=== PATIENT | male | born 1950 | race Caucasian/White ===

== ENCOUNTER 2025-08-28 13:12 | Outpatient (AMB) | payer MEDICARE, SELFPAY ==
--- NOTE | 2025-08-28 13:15 | A.OFFPC_ITS ---
Vital Signs 08/28/25 13:21 Height 5 ft 6.34 in Weight 205 lb BMI 32.7 BP 142/74 H Blood Pressure Location Rt brachial Position Sitting Respiration 16 Pulse 78 Pulse Source Pulse Oximeter Temp 97.6 F Temp Source Temporal Artery Scan Pulse Oximetry (%) 95 Oxygen Delivery Method Room Air Intake Visit Reasons: Annual Physical, New Patient - see comments Informatics Manager Required: No Accompanied by: Self / Same As Patient Allergies No Known Allergies Allergy (Verified 08/28/25 13:15) Tobacco use date assessed: 08/28/25 Fall risk assessment: No Falls in past year Last assessed Fall Risk: 08/28/25 Dental Screening Dental Screen Date: 08/28/25 Did you have a dental visit in the last 12 months?: Yes Did you have a dental problem in the last 6 months where you did not have access to dental care?: No Was dental information given to patient?: Patient has dentist HPI HPI Comments History of Present Illness Details History of Present Illness - The patient is a 75 year old individua l presenting for an annual physical examination and to establish care with a new primary care provider, as the patient's previous physician moved. - Hyperlipidemia: The patient was previo usly on a statin medication but discontinued it after developing a rash in the armpits, which resolved after stopping the drug. - The patient is now attempting to manag e cholesterol through diet and plans to start exercising. - Colon polyps: The last colonoscopy was in 2021, which showed three polyps, and the next screening is due in 2031. - Vitamin D deficiency: The patient was taking vitamin D, but the prescription stopped. - Supplements: The patient takes one cap naheed of Serovital daily for energy and has been doing so for decades. - Vaccinations: The patient declines the influenza vaccine. 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 - Diet: The patient reports previously l etting diet go in the summer with foods like ice cream and tends to eat late at night. - The patient states intent to improve d ietary habits and reduce carbohydrate intake. - Exercise: The patient acknowledges a l ack of regular exercise but plans to start, suggesting activities such as dancing for an hour a day. - Substance Use: The patient denies alco hol use except when eating. - Housing: The patient recently moved to [place]. Results - Procedures: A colonoscopy in 2021 foun d three polyps. [facility] Family History (Updated 08/28/25 @ 13:16 by AR Bonilla) Father No problems noted. Mother No problems noted. Social History (Updated 08/28/25 @ 13:27 by AR Bonilla) Housing: Apartment Alcohol intake: current Alcohol intake frequency: holidays/special occasions only Patient Tobacco Use Status: Never used Tobacco Substance Use Type: Marijuana service: No Current occupational status: employed Cognitive needs: No Hearing needs: No Vision needs: Yes (rx glasses) Questionnaire PHQ-9 Over the last 2 weeks, how often have you been bothered by any of the following problems? 1. Little interest or pleasure in doing things: not at all 2. Feeling down, depressed, or hopeless: not at all 3. Trouble falling or staying asleep, or sleeping too much: not at all 4. Feeling tired or having little energy: not at all 5. Poor appetite or overeating: not at all 6. Feeling bad about yourself - or that you are a failure or have let yourself or your family down: not at all 7. Trouble concentrating on things, such as reading the newspaper or watching television: not at all 8. Moving or speaking so slowly that other people could have noticed. Or the opposite - being so fidgety or restless that you have been moving around a lot more than usual: not at all 9. Thoughts that you would be better off or of hurting yourself in some way: not at all Total score: 0 Source: Developed by Drs. Tera Nuñez, Heena Berry, Vic Pardo and colleagues, with an educational bart from [employer]. Thrive Questionnaire Date Thrive assessed: 08/28/25 I am a: Patient What is your living situation today?: I have a steady place to live Within the past 12 months, did the food you bought not last and you didn't have the money to get more?: Never true Within the past 12 months, did you worry whether your food would run out before you got money to buy more?: Never true Do you have trouble paying for medicines?: No Do you have trouble getting transportation to medical appointments?: No Do you have trouble paying your heating and electricity bill?: No Do you have trouble taking care of your child, family member or friend?: No Do you have trouble with day-to-day activities such as bathing, preparing meals, shopping, managing finances, etc.?: No Are you currently unemployed and looking for a job?: No Are you interested in more education?: No Please select the resources that you would like help with: None THRIVE Score: 0 AUDIT C Alcohol Use Questionnaire (AUDIT-C) 1. How often do you have a drink containing alcohol?: Monthly or less 2. How many drinks containing alcohol do you have on a typical day when you are drinking?: 1 or 2 3. How often do you have six or more drinks on one occasion?: Never Total Score: 1 KENYA-7 AMB Questionnaire KENYA-7 Date KENYA - 7 assessed: 08/28/25 Feeling nervous, anxious, or on edge: 0 = Not at all Not being able to stop or control worryin = Not at all Worrying too much about different things: 0 = Not at all Trouble relaxin = Not at all Being so restless that it is hard to sit still: 0 = Not at all Becoming easily annoyed or irritable: 0 = Not at all Feeling afraid as if something awful might happen: 0 = Not at all Total KENYA-7 score (0-4 normal; 5-9 mild; 10-14 moderate; 15-21 severe): 0 Source: Developed by Drs. Tera Nuñez, Heena Berry, Vic Pardo and colleagues, with an educational bart from [employer]. Review of Systems Narrative Review of Systems - General: Denies any specific concerns. - Reports feeling good and attributes energy levels to taking a supplement. - Eyes: Reports good vision with glasses. - Denies seeing halos and is not excessively bothered by bright lights. - Ear/Nose/Throat: Reports very good hearing. - Genitourinary: Denies any problems with urination, including leakage. - Musculoskeletal: Denies any pain. - Dermatologic: Reports a history of a rash in the armpits associated with statin use, which has resolved. Physical exam (Primary Care) Vital Signs: Last Vital Signs Temp 97.6 F 08/28/25 13:21 Pulse 78 08/28/25 13:21 Resp 16 08/28/25 13:21 BP 142/74 H 08/28/25 13:21 Pulse Ox 95 08/28/25 13:21 Oxygen Delivery Method Room Air 08/28/25 13:21 BMI result Body Mass Index 32.7 Tobacco/Smoking Status: Tobacco use Status Tobacco use date assessed 08/28/25 08/28/25 13:17 Patient Tobacco Use Status Never used Tobacco 08/28/25 13:27 PHQ-9: PHQ-9 Score PHQ-9: Total score 0 08/28/25 13:27 Thrive Assessment: Date of Thrive Assessment Date Thrive assessed 08/28/25 08/28/25 13:17 Narrative Physical Exam General: Cooperative and healthy appearing Nutritional Appearance: Well nourished Orientation/consciousness: Patient oriented x3 Limitations: No limitations Head: Normal to inspection General: Appearance normal, both eyes and all related structures Neck: Normal visual inspection Chest: Normal palpation of entire chest wall Respiratory: Normal respiratory effort Neurology: Patient oriented x3 Office Procedures Flu Questionnaire Does the patient have a severe egg allergy?: No Does the patient have severe life threatening allergies?: No Does the patient have a fever or illness today?: No Has the patient ever had Guillain-[place] Syndrome?: No Has the patient ever had any past reaction to a flu shot?: No Immunizations Fluarix [id number] (PF) 45 mcg (15 mcg x 3)/0.5 mL IM syringe Performing Provider: Neil Covarrubias MD [place] [facility] Documented (not given) by: AR Bonilla on 08/28/25 13:27 Reason Not Given: Patient Refused Coding Level of Care Code New Pt Prev Care >65yr (05888) Diagnoses Annual physical exam Z00.00 Assessment & Plan Assessment & Plan (1) Annual physical exam: Code(s): Z00.00 - Encounter for general adult medical examination without abnormal findings Plan Plan - Will obtain baseline fasting blood work at [facility], to include a lip id panel and prostate-specific antigen for prostate cancer screening. - Encouraged to resume vitamin D with an [id number] supplement taken once daily. - Continue with lifestyle modifications, including improved diet with reduced carbohydrate intake and increased physical activity, to manage hyperlipidemia. - Statin therapy will remain on hold due to a prior adverse reaction. - Continue taking Serovital supplement as desired. - The patient declined the influenza vaccine; this was acknowledged. - Schedule a follow-up visit in six months to review lab results. Discussion Notes I met with the patient, a 75 year old individual, for a physical examination and to establish care. We discussed the history, including the discontinuation of a statin due to a rash, and the plan to manage cholesterol with diet and exercise for now. I encouraged the patient to resume [id number] vitamin D supplementation. We reviewed that the most recent colonoscopy was in 2021 and that the patient is not due for another one for some time. The patient declined the influenza vaccine. I provided a lab requisition for baseline fasting blood work, which will include a prostate cancer screening test, and recommended a follow-up in six months to review the results. Patient Instructions - Please go to the lab at [facility] to have your blood drawn. - You must fast for this blood test, so do not eat or drink anything except water after midnight the night before your lab visit. - You may start taking an [id number] vitamin D supplement once a day. - Continue with your plan to improve your diet by reducing sugars and carbohydrates and to increase your physical activity. - You can continue taking your Serovital supplement as you have been. - Please schedule a follow-up appointment in six months to go over your lab results. Orders: Orders Influenza [id number] Immunization Today Z23 - Encounter for immunization Basic Metabolic Panel Today E78.00 - Pure hypercholesterolemia, unspecified Liver Panel Today E78.00 - Pure hypercholesterolemia, unspecified Thyroid Stimulating Hormone Today E78.00 - Pure hypercholesterolemia, unspecified Prostate Specific Antigen Scr Today E78.00 - Pure hypercholesterolemia, unspecified Lipid Panel Today E78.00 - Pure hypercholesterolemia, unspecified Complete Blood Count no Diff Today E78.00 - Pure hypercholesterolemia, unspecified UA and rflx microscopic Today E78.00 - Pure hypercholesterolemia, unspecified
[2025-08-28 13:21] VITALS: BP 142/74; PULSE 78; RESP 16; TEMP 36.4; O2SAT 95; BMI 32.7
== END 2025-08-28 13:44 | disposition home or self-care (01) ==
LOC: HO.HMCSH 13:12
PROVIDERS: PCP Internal Medicine; Visit Provider Internal Medicine
DX: Z23 Encounter for immunization (principal); Z00.00 Encounter for general adult medical examination without abnormal findings

== ENCOUNTER → 2025-08-28 13:12 | Outpatient (BNVA) | payer MEDICARE, SELFPAY | PROVIDERS: PCP Internal Medicine; Visit Provider Internal Medicine | DX: Z00.00 Encounter for general adult medical examination without abnormal findings (principal); E78.00 Pure hypercholesterolemia, unspecified; E55.9 Vitamin D deficiency, unspecified; Z13.31 Encounter for screening for depression; Z13.39 Encounter for screening examination for other mental health and behavioral disorders | CPT/HCPCS: 90471; 96127; 99387 ==

== ENCOUNTER 2025-09-27 11:23 | Outpatient (REF) | payer MEDICARE, SELFPAY ==
--- OUTSIDE RECORDS SUMMARY | 2025-09-27 11:28 | XMS_ITS | Data Portability ---
Author Organization MD - [facility], [facility] Address [address] [place] [address] Care Team Providers Care Network Development Coordinator Name Role Phone EZIO GUTIERREZ Primary Care Provider Unavailab le Assessment Encounter Date Assessment Date Assessment LastModified by Organization Details LastModified Time 02/11/2024 02/11/2024 Summary of Visit: Pt came in for MNT f/u r/t weight management and HLD . Previous MNT education was reinforced. New MNT education was provided as well. Pt was receptive to education and will continue to work on MNT goals. Updated Diet recall: none this visit Updates 02/11/24: - weight stable since last visit - loss of 5.8 lb in 3 years (weight went up to 220 lb in 2021, but he is back to his UBW) Not available 02/22/2024 11:33:06 10/03/2024 10/03/2024 Summary of Visit: Pt came in for MNT f/u r/t weight management and HLD . Previous MNT education was reinforced. New MNT education was provided as well. Pt was receptive to education and will continue to work on MNT goals. Updated Diet recall: none this visit Updates 10/03/24: - weaned himself off of his statin and cholesterol went up - discussed HLD MNT - reinforced importance of high fiber, increased physical activity, importance of Conifer 3, benefit of reducing saturated fat, plant sterols - pt has fish a few times per week and replaced 1 meat with lentils each week - no progress with weight goal Updates 02/11/24: - weight stable since last visit - loss of 5.8 lb in 3 years (weight went up to 220 lb in 2021, but he is back to his UBW) Not available 11/07/2024 09:27:19 03/20/2025 03/20/2025 Summary of Visit: Pt came in for MNT f/u r/t weight management and HLD . Previous MNT education was reinforced. New MNT education was provided as well. Pt was receptive to education and will continue to work on MNT goals. Updates 03/20/25: - has not gone back on statin (weaned self off because he wanted to take diet approach - see last visit note) - has lost 1.4 lb since last visit - pt was not able to verbalize understanding from previous visit - reinforced HLD MNT - high fiber, low sat fat, high unsat fat, portion control - needs new PCP to check Updated Diet recall: none this visit Updates 10/03/24: - weaned himself off of his statin and cholesterol went up - discussed HLD MNT - reinforced importance of high fiber, increased physical activity, importance of Conifer 3, benefit of reducing saturated fat, plant sterols - pt has fish a few times per week and replaced 1 meat with lentils each week - no progress with weight goal Updates 02/11/24: - weight stable since last visit - loss of 5.8 lb in 3 years (weight went up to 220 lb in 2021, but he is back to his UBW) Not available 03/20/2025 14:49:23 Plan of Treatment Reminders Order Date Submit Date Provider Last Modified By Organization Details Last Modified Time Details Appointments None record ed. Lab None record ed. Referral None record ed. Procedures None record ed. Surgeries None record ed. Imaging None record ed. Medication Orders None record ed. Patient Targets Encounter Date Encounter Id Patient Goals Patient Target Last Modified By Organization Details Last Modified Time 05/04/2023 [id number] Goals: 1. Promote weight loss of 1/2-1# per week. 2. Promote lipid panel WNL. 3. Promote regular physical activity. Not available 05/04/2023 16:10:19 02/11/2024 [id number] 1. Promote weight loss of 0.5-2 lb per week. 2. Promote BGlu management with HbA1C <5.7% 3. Promote lipid panel WNL. 4. Promote regular physical activity. Not available 02/22/2024 11:58:36 10/03/2024 [id number] 1. Promote weight loss of 0.5-2 lb per week. 2. Promote BGlu management with HbA1C <5.7% 3. Promote lipid panel WNL. 4. Promote regular physical activity. Not available 10/03/2024 14:25:38 03/20/2025 [id number] 1. Promote weight loss of 0.5-2 lb per week. 2. Promote BGlu management with HbA1C <5.7% 3. Promote lipid panel WNL. 4. Promote regular physical activity. Not available 03/20/2025 14:32:02 Patient Instructions Encounter Date Encounter Id Patient Instructions Last Modified By Organization Details Last Modified Time 05/04/2023 [id number] 6 month follow-u p or sooner (with another RD) if needed Not available 05/04/2023 16:10:29 - Use the Plate Method to create balanced main meals with 1/2 plate nonstarchy veggies, 1/4 plate protein, and 1/4 plate grain/starchy veggies. Try adding protein and veggies to your pasta dinners, and reduce portion of pasta--you could have a small bowl of pasta with a separate bowl of salad, topped with some rotisserie chicken (skin off). - Take breaks while eating at night to assess your hunger and fullness level. - Avoid eating directly from original packages--portion and plate all food and put the original package away. Not available 05/04/2023 14:01:41 11/02/2023 [id number] - Add a second meal daily--try a PB&J on whole grain bread with your coffee. - Use the Plate Method to create balanced main meals with 1/2 plate nonstarchy veggies, 1/4 plate protein, and 1/4 plate grain/starchy veggies. Try adding protein and veggies to your pasta dinners, and reduce portion of pasta--you could have a small bowl of pasta with a separate bowl of salad, topped with some rotisserie chicken (skin off). - Challenge yourself to increase daily step count whenever possible. As the weather improves, consider purposeful outdoor walks. Not available 11/02/2023 13:55:38 02/11/2024 [id number] f/u in 6 months. Sooner if needed. Not available 02/22/2024 11:57:19 For improving cholesterol levels: 1. Limit saturated fats and trans fats: - Foods high in saturated fats include fatty meat, poultry skin, cline, sausage, whole milk, cream, and butter. - Trans fats are found in packaged foods made with hydrogenated and partially hydrogenated oils. - Choose oils and plant based butter like spreads 2. Eat more omega-3 fats (heart-healthy fats): - Good choices include salmon, tuna, mackerel, and sardines. Aim to eat fish twice a week. - Other foods with omega-3 fats include walnuts and canola and soybean oils. - Flax seed is another source of omega-3 fats. Have it as flax seed oil or ground flax seed. 3. Limit the total amount of fat that you eat (including heart-healthy fats) to 25% to 35% of the calories that you eat. - If you should eat 2,000 calories per day, your fat intake can be between 50 and 75 grams (g) per day. 4. Aim for 28 to 35 g of dietary fiber per day: - Fruits, vegetables, whole grains, and dried beans are good sources of fiber - Aim for 5 cups of fruits and vegetables per day. - Have ~ 3 ounces (oz) of whole grain foods every day. 5. Consider eating more plant-based meals , using beans and soy foods for protein. 6. Aim for 150 minutes of moderate physical activity per week . - Plan to get about 30 minutes of exercise most days. For weight loss goal: 7. Eat 5-6 small times daily (3 small meals + 3 small snacks) B - grain/starch/frui t + protein S - grain/starch/frui t + protein/healthy fat L - grain/starch/frui t + protein + vegetable (1/2 of the meal) S - grain/starch/frui t + protein/healthy fat D - grain/starch/frui t + protein + vegetable (1/2 of the meal) S - grain/starch/frui t + protein/healthy fat Not available 02/22/2024 11:57:01 10/03/2024 [id number] f/u in 6 months. Sooner if needed. Not available 10/03/2024 14:25:38 For improving cholesterol levels: 1. Limit saturated fats and trans fats: - Foods high in saturated fats include fatty meat, poultry skin, cline, sausage, whole milk, cream, and butter. - Trans fats are found in packaged foods made with hydrogenated and partially hydrogenated oils. - Choose oils and plant based butter like spreads 2. Eat more omega-3 fats (heart-healthy fats): - Good choices include salmon, tuna, mackerel, and sardines. Aim to eat fish twice a week. - Other foods with omega-3 fats include walnuts and canola and soybean oils. - Flax seed is another source of omega-3 fats. Have it as flax seed oil or ground flax seed. 3. Limit the total amount of fat that you eat (including heart-healthy fats) to 25% to 35% of the calories that you eat. - If you should eat 2,000 calories per day, your fat intake can be between 50 and 75 grams (g) per day. 4. Aim for 28 to 35 g of dietary fiber per day: - Fruits, vegetables, whole grains, and dried beans are good sources of fiber - Aim for 5 cups of fruits and vegetables per day. - Have ~ 3 ounces (oz) of whole grain foods every day. 5. Consider eating more plant-based meals , using beans and soy foods for protein. 6. Aim for 150 minutes of moderate physical activity per week . - Plan to get about 30 minutes of exercise most days. For weight loss goal: 7. Eat 5-6 small times daily (3 small meals + 3 small snacks) B - grain/starch/frui t + protein S - grain/starch/frui t + protein/healthy fat L - grain/starch/frui t + protein + vegetable (1/2 of the meal) S - grain/starch/frui t + protein/healthy fat D - grain/starch/frui t + protein + vegetable (1/2 of the meal) S - grain/starch/frui t + protein/healthy fat Not available 10/03/2024 14:45:53 03/20/2025 [id number] f/u in 6 months. Sooner if needed. Not available 03/20/2025 14:32:02 For improving cholesterol levels: 1. Limit saturated fats and trans fats: - Foods high in saturated fats include fatty meat, poultry skin, cline, sausage, whole milk, cream, and butter. - Trans fats are found in packaged foods made with hydrogenated and partially hydrogenated oils. - Choose oils and plant based butter like spreads 2. Eat more omega-3 fats (heart-healthy fats): - Good choices include salmon, tuna, mackerel, and sardines. Aim to eat fish twice a week. - Other foods with omega-3 fats include walnuts and canola and soybean oils. - Flax seed is another source of omega-3 fats. Have it as flax seed oil or ground flax seed. 3. Limit the total amount of fat that you eat (including heart-healthy fats) to 25% to 35% of the calories that you eat. - If you should eat 2,000 calories per day, your fat intake can be between 50 and 75 grams (g) per day. 4. Aim for 28 to 35 g of dietary fiber per day: - Fruits, vegetables, whole grains, and dried beans are good sources of fiber - Aim for 5 cups of fruits and vegetables per day. - Have ~ 3 ounces (oz) of whole grain foods every day. 5. Consider eating more plant-based meals , using beans and soy foods for protein. 6. Aim for 150 minutes of moderate physical activity per week . - Plan to get about 30 minutes of exercise most days. For weight loss goal: 7. Eat 5-6 small times daily (3 small meals + 3 small snacks) B - grain/starch/frui t + protein S - grain/starch/frui t + protein/healthy fat L - grain/starch/frui t + protein + vegetable (1/2 of the meal) S - grain/starch/frui t + protein/healthy fat D - grain/starch/frui t + protein + vegetable (1/2 of the meal) S - grain/starch/frui t + protein/healthy fat 8. Get new PCP - get new blood work Not available 03/20/2025 14:48:06 Reason for Referral None Reported. Results Created Date Observation Date Name Description Value Unit Range Abnormal Flag Note LastModifiedBy Organization Detail LastModifiedTime Result Notes None recorded. Problems Name Problem SNOMED Code Status Onset Date Resolution Date Notes Provider Name and Address Organization Details Recorded Time History of polyp of colon 516122940 Active 08/25 TWO POLYPS, TRANSVERS E COLON, BIOPSY: - Tubular adenoma. - Sessile serrated polyp. Ezio Gutierrez MD [address] [facility] [place], [address], [facility] 2 15:19:38 Vaccine declined by patient 566380677454 Active 2021 Ezio Gutierrez MD [address] [place] [address] [place], [address], [facility] 2 15:19:38 Essential hypertens ion 72145930 Active 2021 weaned down to lower dose human growth hormone. Advised on inherent risks without medical endorseme nt, not seeing endocrino logy. Advised on increased risk cancer. Ezio Gutierrez MD [address] [place], [place] [address], [address], [facility] 2 15:19:38 Obesity 624064758 Active 2021 counseled on healthy food intake and exercise and need to lose appropria te weight. Ezio Gutierrez MD [address] [place], [place] [address], [address], [facility] 2 15:19:38 Hypertrop hic condition of skin 13479522 Active 2021 Ezio Gutierrez MD [address] [place], [place] [address], [address], [facility] 2 15:19:38 Candidias is 97337183 Active 2021 continue antifunga l powder as needed Ezio Gutierrez MD [address] [place], [place] [address], [address], [facility] 2 15:19:38 Vitamin D deficienc y 49107093 Active 2021 Ezio Gutierrez MD [address] [place], [place] [address], [address], [facility] 2 15:19:38 Hyperlipi izabel 52557906 Active 2021 spoke with patient and educated about high lipid levels, risk of heart attack and stroke, advised to stop human growth hormone. and advised we will start atorvasta tin med to help control cholester ol levels. 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 Procedures Surgical History Date Name Laterality Status Provider Name and Address Organization Details Recorded Time 03/20/20 25 Nutrition completed Danni Brunson, DARIEN [address] [facility] [place], [address], [facility] 03/20/2025 14:32:02 10/03/20 24 Nutrition completed Danni Brunson RD [address] [facility] [place], [address], [facility] 10/03/2024 14:25:38 02/11/20 24 Nutrition completed Danni Brunson RD [address] [facility] [place], [address], [facility] 02/22/2024 09:56:20 11/02/19 24 Nutrition completed Ilsa Bassett MS, RDN, LDN [address] [facility] [place], [address], [facility] 11/16/2023 13:08:30 05/04/20 23 Nutrition completed Ilsa Bassett MS, RDN, LDN [address] [facility] [place], [address], [facility] 05/04/2023 16:06:36 01/27/20 23 Nutrition completed Ilsa Bassett MS, RDN, LDN [address] [facility] [place], [address], [facility] 02/23/2023 15:01:06 10/20/19 23 Nutrition completed Ilsa Bassett MS, RDN, LDN [address] [facility] [place], [address], [facility] 11/10/2022 12:32:37 08/11/20 22 Advance Care Plan completed Ezio Gutierrez MD [address] [facility] [place], [address], [facility] 08/11/2022 15:57:25 08/11/20 22 Mini-Mental State Exam (MMSE) completed Ariela Balbuena [facility] 08/11/2022 15:45:10 08/11/20 22 Instrumental Activities of Daily Living completed Ariela Balbuena [facility] 08/11/2022 15:44:21 08/11/20 22 Activities of Daily Living Scale completed Ariela Balbuena [facility] 08/11/2022 15:43:58 07/28/20 22 Nutrition completed Ilsa Bassett MS, RDN, LDN [address] [place], [address], [facility] 08/18/2022 10:04:53 04/28/20 22 Nutrition completed Ilsa Bassett, , RDN, LDN [address] [place], [address], [facility] 05/09/2022 12:37:56 01/28/20 22 Nutrition completed Ilsa Bassett, , RDN, LDN [address] [place], [address], [facility] 02/14/2022 10:29:01 11/04/19 22 Nutrition completed Ilsa Bassett, , RDN, LDN [address] [place], [address], [facility] 11/08/2021 16:16:48 09/04/20 21 Colonoscopy w/lesion removal completed Madie Dela Cruz [facility] 09/04/2021 15:51:31 08/07/20 21 Nutrition completed Ilsa Bassett, MS, RDN, LDN [address] [place], [address], [facility] 08/07/2021 15:10:25 Imaging Results None recorded. Procedure Notes None recorded. Medical Equipment None Reported. Allergies No known drug allergies Medications Name Sig Start Date Stop Date Status Note LastModified by Organization Details LastModified Time amoxicillin 500 mg capsule 07/21 completed Not Available Not Available Not Available atorvastati n 20 mg tablet TAKE 1 TABLET BY MOUTH EVERYDAY AT BEDTIME active Not Available Not Available No t Available penicillin V potassium 500 mg tablet active Not Available Not Available Not Available Vitamin D3 25 mcg (1,000 unit) tablet TAKE 1 TABLET BY MOUTH ONCE A DAY active Not Available Not Available No t Available Vitamin D2 08/11 completed Not Available Not Available Not Available Antifungal (miconazole ) 2 % topical powder APPLY TO AFFECTED AREA TWICE A DAY active Not Available Not Available No t Available Vitals Date Recorded Body height Body mass index (BMI) Body weight Provider Name and Address Organization Details Last Updated DateTime 11/02/2023 166.37 cm 33.2 kg/m2 41428.1 g Ilsa Bassett, , RDN, LDN [address] [place], [address], [facility] 11/16/2023 13:08:27 Date Recorded Body height Body mass index (BMI) Body weight Provider Name and Address Organization Details Last Updated DateTime 02/11/2024 166.37 cm 33.1 kg/m2 46178.66 g Danni Brunson, RD [address] [place], [address], [facility] 02/11/2024 13:08:54 Date Recorded Body height Body mass index (BMI) Body weight Provider Name and Address Organization Details Last Updated DateTime 03/20/2025 166.37 cm 34 kg/m2 57663.78 g Danni Brunson, RD [address] [place], [address], [facility] 03/20/2025 14:31:52 Date Recorded Body height Body mass index (BMI) Body weight Provider Name and Address Organization Details Last Updated DateTime 05/04/2023 166.37 cm 34.3 kg/m2 63480.96 g Ilsa Bassett, , RDN, LDN [address] [place], [address], [facility] 05/04/2023 16:06:32 Date Recorded Body height Body mass index (BMI) Body weight Provider Name and Address Organization Details Last Updated DateTime 10/03/2024 166.37 cm 34.2 kg/m2 16903.09 g Danni Brunson, RD [address] [place], [address], [facility] 10/03/2024 14:26:01 Social History None recorded. Functional Status Question Answer Note LastModified by Organizat ion Details LastModified Time What is your level of alcohol consumption? Occasional [email or web address] Information not available 08/11/2022 Mental Status None recorded. Family History Relationship Description Onset Age of this Age Resolved Age Notes LastModified by Organization Details LastModified Time Maternal Grandmother Type 2 diabetes mellitus [email or web address] Not available 07/21 09:29:53 Medical History No medical history recorded. Immunizations Vaccine Type Date Status Note Provider Nam e and Address Organization Details Recorded Time pneumococcal polysaccharide PPV23 0 completed Tabby Patel null, [facility] 01/26/2023 08:15:17 Tdap 9 completed Tabby Patel [facility], [facility] 01/26/2023 08:15:17 Pneumococcal conjugate PCV 13 2 completed Ariela Balbuena CMA null, [facility] 08/11/2022 16:52:14 Past Encounters Encounter ID Performer Location Encounter Start Date Encounter Closed Date Diagnosis/Indication Diagnosis SNOMED-CT Code Diagnosis ICD10 Code Diagnosis IMO Codes Diagnosis Note [id number] Ilsa Bassett, MS, RDN, LDN [facility] [address] [place] [address] [address] [place] [address] 08/07/2021 13:09:57 08/07/2021 14:04:45 Hyperlipidemia 44955151 E78.5 Body mass index 30+ - obesity 155111628 Z68.31 Summary of Visit:Sheron hawthorne is a 71 year old male referred for HLD, HTN, and obesity. No recent PCP office visit is available for review, although Alexander's medical record shows that he takes Atorvastat in for cholestero l management . He has a CPE tomorrow with Dr. Gutierrez. Alexander would like to lose weight, and has been taking SeroVital supplement s for ~4-5 months, with no noticeable effects (although he feels that he has been eating more during this time as well). Alexander relies heavily on grab-and- go meals and takeout, which is likely contributi ng to excessive energy, fat, sodium, and carbohydra te intake.We discussed the importance portion management , specifical ly with calorie-de nse foods like nuts/trail mix. Education provided on using the Plate Method for creating balanced meals. Discussed the difference between the calorie and carbohydra te content of starchy and nonstarchy vegetables , as well the benefits of opting for whole grain products over refined grain products. Specific portion size recommenda tions for each food group were provided. Discussed ways to implement the Plate Method meal structure while out to eat. Patient stage of change: preparatio n Weight Goal: 175#Estima davida Kcal Needs: 1771 kcal/day (MSJ for weight loss)Estim ated Protein needs: 94 g protein/da y (1.0 g/kg/day)E stimated Fluid Needs: 2610 ml fluid/day (weight method) Nutrition Diagnosis: - Altered nutrition- related labs related to HLD as evidenced by total CHOL 286H, Trig 215H, and LDL 200.7H.- Excessive energy intake related to daily dining out, undesirabl e food choices, and large portions as evidenced by diet recall above. Written Materials Provided:- Plate Method handout- My Plate Silvering Department Supervisor handout Educator Assessed Learning Barriers: none [id number] Ilsa Bassett, MS, RDN, LDN [facility] [address] [place] [address] [address] [place] [address] 11/04/2021 12:59:16 11/04/2021 13:28:32 Hyperlipidemia 03486593 E78.5 Body mass index 30+ - obesity 258188082 Z68.31 Summary of Visit:Sheron hawthorne presents for MNT f/u for obesity and HLD. Lipid panel from 08/2021 shows improved total cholestero l, triglyceri joselin (still elevated), and LDL. HDL is low. - more aware of portions (ie trail mix) - decreased trail mix since initial visit, still eating somewhat mindlessly -Alexander will try portioning trail mix out and putting the container away, rather than eating directly out of the container- doing some yoga/stret rasheed in small bursts throughout the day, not much purposeful exercise though- every now and then has a meal in the middle of the day- recent passing of a family member - increased stress, poor sleep - continues to dine out for most main (dinner) meals- still getting salmon, rice, broccoli - most of the time ; sometimes orders rider salad- still getting [place] cheddar burger, occasional ly with veg or salad - 1-2x per week -encourage love Munoz to replace the extra starch with veggies or salad more frequently - Turkish, swaps out rice for araujo mein (all veggies, pork - no noodles in this dish) with an egg roll, beef teriyaki, boneless pork - 1-2x per week Patient stage of change: preparatio n Weight Goal: 175#Estima davida Kcal Needs: 1771 kcal/day (MSJ for weight loss)Estim ated Protein needs: 94 g protein/da y (1.0 g/kg/day)E stimated Fluid Needs: 2610 ml fluid/day (weight method) Nutrition Diagnosis: - Altered nutrition- related labs related to HLD as evidenced by total CHOL 286H, Trig 215H, and LDL 200.7H. - improving- Excessive energy intake related to daily dining out, undesirabl e food choices, and large portions as evidenced by diet recall above. - improving Educator Assessed Learning Barriers: none [id number] Ilsa Bassett MS, GERMÁN, TYSON [facility] [address] [facility] [place] [facility] [address] [place] [address] 01/27/2022 13:30:50 01/27/2022 14:10:42 Hyperlipidemia 45296349 E78.5 Body mass index 30+ - obesity [id number] Z68.31 Summary of Visit:Sheron hawthorne presents for MNT f/u for obesity and HLD. Weight is -7# since last visit. - intake is overall stable since last visit- reviewed strategies to build balanced, satiating snacks- discussed eating structure and eating at regular intervals to stay adequately fueled and avoid excessive hunger/antony ound overeating - identified strategies to increase purposeful physical activity Patient stage of change: preparatio n Weight Goal: 175#Estima davida Kcal Needs: 1771 kcal/day (MSJ for weight loss)Estim ated Protein needs: 94 g protein/da y (1.0 g/kg/day)E stimated Fluid Needs: 2610 ml fluid/day (weight method) Nutrition Diagnosis: - Altered nutrition- related labs related to HLD as evidenced by total CHOL 286H, Trig 215H, and LDL 200.7H. - improving- Excessive energy intake related to daily dining out, undesirabl e food choices, and large portions as evidenced by diet recall above. - improving Educator Assessed Learning Barriers: none [id number] Ilsa Bassett MS, GERMÁN, TYSON [facility] [address] [facility] [address] [place] [address] 04/28/2022 13:41:10 04/28/2022 14:20:11 Body mass index 30+ - obesity [id number] Z68.31 Summary of Visit:Sheron hawthorne presents for MNT f/u for obesity and HLD. Weight is +1.4# since last visit. - re: last visit's goals: I haven't done any of it - sometimes incorporat es seated exercises, recognizes that this is not enough - I need to focus on increasing exercise -Alexander will start with walking 2x per week- working less lately, less stressed-d iscussed benefits of more home cooking vs. daily dining out - plans to start grocery shopping vimal for fruits/veg gies - goal is 2x per week to make these foods more readily available Patient stage of change: preparatio n Weight Goal: 175#Estima davida Kcal Needs: 1771 kcal/day (MSJ for weight loss)Estim ated Protein needs: 94 g protein/da y (1.0 g/kg/day)E stimated Fluid Needs: 2610 ml fluid/day (weight method) Nutrition Diagnosis: - Altered nutrition- related labs related to HLD as evidenced by total CHOL 286H, Trig 215H, and LDL 200.7H. - improving- Excessive energy intake related to daily dining out, undesirabl e food choices, and large portions as evidenced by diet recall above. - improving Educator Assessed Learning Barriers: none Hyperlipidemia 56345912 E78.5 [id number] Ezio Gutierrez MD [address] [address] 08/11/2022 15:36:30 08/11/2022 16:43:24 Adult health examination [id number] Z00.01 Patient should discuss medical decisions with Health Care Proxy. Recommende d screenings included colonoscop y screening age 45, earlier based on family history/ri sk factors; one time screen for hepatitis C if born between 1821-1400 or has risk factors. Recommend annual low-dose CT scan screening for high-risk individual s ages 50 to 80 years with 20 pack-year history of smoking and current smoker or quit within past 15 years. Reviewed vaccines and current recommenda tions. Basic health topics include aerobic exercise, importance of healthy/ba lanced diet and minimizing caffeine and alcohol. Administra tion of pneumococcal vaccine [id number] Z23 If PCV15 is used, this should be followed by a dose of PPSV23 one year later. The minimum interval is 8 weeks and can be considered in adults with an immuno-com promising condition, cochlear implant, or cerebrospi nal fluid leak.If PCV20 is used, a dose of PPSV23 is NOT indicated. Varicella vaccination 68 689405 Z23 advised shingles vaccine and handout given Influenza vaccine needed [id number] 106 Z23 Pt presents for influenza vaccinatio n. Patient screened with questions from 4577-6123 Flu protocol. Discussed importance of influenza vaccine due to the patient's risk of contractin g the disease. A handout was offered to enhance understand ing of the effects and side effects of the vaccine.De clined. Advance care planning 71 [id number] Z71.89 discussed HCP- see procedure note. Handout given and advised to return. Essential hypertension [id number] I10 no current meds, monitoring . Recheck with Nurse BP check. Hyperlipidemia 18279006 E78.5 continue Atorvastat in. Obesity 891929092 E66.9 Advised on healthy food intake and exercise. Endocrinol ogy appt Oct 27. Vaccine de clined by patient [id number] 02 Z28.21 influenza Vitamin D deficiency [id number] E55.9 check level History of polyp of colon 009485015 Z86.010 08/25 TWO POLYPS, TRANSVERSE COLON, F/U 2027- Tubular adenoma.- Sessile serrated polyp. Benign pro static hyperplasia with outflow obstruction 021312353 N40.1 wakes up 3x at night to urinate but drinks fluid till bedtime. [id number] Ilsa Bassett, MS, RDN, LDN [facility] [address] [place] [address],[address] [address] 07/28/2022 13:43:00 07/28/2022 14:30:12 Body mass index 30+ - obesity [id number] Z68.31 Summary of Visit:Sheron christoph presents for MNT f/u for obesity and HLD. Weight is stable since last visit. - counting steps - if just at home, maybe get ~500-1000 steps daily; if leaving the house, could be 2-6k- did walk to restaurant 1x as previously discussed- *New step goals*:on a 100% at home day , will aim for 1000 steps or more ; on days when leaving the house, will aim for 3000 steps or more - has stocked up on some ingredient s, hasn't yet started to cook - within the next month, will be stocking up on frozen veggies -discussed benefits of more home cooking vs. daily dining out - plans to start grocery shopping vimal for fruits/veg gies - goal is 2x per week to make these foods more readily available - looked at different energy/sna ck/protein bars -discussed 02/21 Rule; advised 20% or higher for fiber ; less than 20% (ideally 5% or lower) for saturated fat/sodium /added sugars whenever possible Patient stage of change: preparatio n Weight Goal: 175#Estima davida Kcal Needs: 1771 kcal/day (MSJ for weight loss)Estim ated Protein needs: 94 g protein/da y (1.0 g/kg/day)E stimated Fluid Needs: 2610 ml fluid/day (weight method) Nutrition Diagnosis: - Altered nutrition- related labs related to HLD as evidenced by total CHOL 286H, Trig 215H, and LDL 200.7H. - improving- Excessive energy intake related to daily dining out, undesirabl e food choices, and large portions as evidenced by diet recall above. - improving Educator Assessed Learning Barriers: none [id number] [facility] Nurse [address] [address] 09/10/2022 10:00:27 09/10/2022 10:31:23 Abnormal vital signs 52536904 R68.89 [id number] Ilsa Bassett, MS, RDN, LDN [facility] [address] [place] [address],[facility] [address] [place] [address] 10/20/2022 13:30:04 10/20/2022 13:59:24 Body mass index 30+ - obesity [id number] Z68.31 Summary of Visit:Sheron hawthorne presents for MNT f/u for obesity and HLD. Weight is -4.4# since last visit. - lipid panel much improved - total CHOL 188, Trig 123, HDL 37.9L, LDL 125.5H- stress: rent was doubled, looking to buy now- doing better with steps - goals from last visit are being met - has been cooking more due to economy, less dining out- still doing protein/en ergy bars - may have throughout the day and then one after eating whole wheat pasta/sauc e for dinner (treats the bar as protein source) -encourage d to add protein and nonstarchy veggies to add balance/vo lume to pasta meal- sometimes oatmeal as a meal (made with water, no other toppings)- still goes to the sometimes for salmon/ashly e/broccoli (~2-3x per week) Patient stage of change: action Weight Goal: 175#Estima davida Kcal Needs: 1771 kcal/day (MSJ for weight loss)Estim ated Protein needs: 94 g protein/da y (1.0 g/kg/day)E stimated Fluid Needs: 2610 ml fluid/day (weight method) Nutrition Diagnosis: - Altered nutrition- related labs related to HLD as evidenced by total CHOL 286H, Trig 215H, and LDL 200.7H. - improving total CHOL 188, Trig 123, HDL 37.9L, and LDL 125.5H (08/11/22)- Excessive energy intake related to daily dining out, undesirabl e food choices, and large portions as evidenced by diet recall above. - improving Educator Assessed Learning Barriers: none [id number] Ilsa Bassett, MS, RDN, LDN [facility] [address] [place] [phone] 01/26/2023 13:30:59 01/26/2023 13:59:57 Body mass index 30+ - obesity [id number] Z68.31 Summary of Visit:Sheron hawthorne presents for MNT f/u for obesity and HLD. Weight is -3.2# since last visit. - new cholestero l labs: total CHOL 212H, Trig 164H, HDL 39L, LDL 140H - total CHOL, Trig, and LDL are increased since last set of labs - pt admits to not taking medication regularly- step goal is being met - doing much better with food- still cooking more for himself Diet Recall:- PB&J sandwich on WW bread -encourage d to look for NSA jelly/jam- later on , eats a plate of pasta - hasn't thought about adding veg/protei n to pasta yet - this will be an ongoing goal -reiterate d need to balance meal with protein/fi jefferson (veggies), suggested rotisserie chix with the skin off for protein- reports minimal grazing during the day- still goes to the [employer] restaurant sometimes for salmon/ashly e/broccoli (~2-3x per week) Patient stage of change: action Weight Goal: 175#Estima davida Kcal Needs: 1771 kcal/day (MSJ for weight loss)Estim ated Protein needs: 94 g protein/da y (1.0 g/kg/day)E stimated Fluid Needs: 2610 ml fluid/day (weight method) Nutrition Diagnosis: - Altered nutrition- related labs related to HLD as evidenced by total CHOL 286H, Trig 215H, and LDL 200.7H. - improving total CHOL 188, Trig 123, HDL 37.9L, and LDL 125.5H (08/11/22); total CHOL 212H, Trig 164H, HDL 39L, LDL 140H (12/30/22)- Excessive energy intake related to daily dining out, undesirabl e food choices, and large portions as evidenced by diet recall above. - improving Educator Assessed Learning Barriers: none [id number] Ilsa Bassett, MS, RDN, LDN [facility] [address] [place] [address] [address] [place] [address] 05/04/2023 13:30:02 05/04/2023 14:05:21 Body mass index 30+ - obesity [id number] Z68.31 Summary of Visit:Sheron hawthorne presents for MNT f/u for obesity and HLD. Weight is +3# since last visit. No new labs are available to assess. - I think I'm eating more, could be stress-rel ated - bought a 2 family in [place], there was a ring sewer break, this has been stressful - enjoys ICE drinks- will have a protein bar or cheese/craft artist ckers or PB sandwich during the day- at night, usually takeout (salmon w/ rice and broccoli OR burger OR smothered steak tips w/ rice and broccoli) ; hasn't cooked for self in a while due to heat of summer, sometimes makes pasta as dinner -reviewed strategies to add balance to pasta meal with veggies and protein - eats in front of the TV, has done this his whole life -highlight ed effects of distractio n on eating behaviors and identified strategies to practice more mindful eating behaviors (take breaks to assess hunger/ful lness level; plate all food, including snacks, and avoid eating directly from original food packages) Patient stage of change: action Weight Goal: 175#Estima davida Kcal Needs: 1771 kcal/day (MSJ for weight loss)Estim ated Protein needs: 94 g protein/da y (1.0 g/kg/day)E stimated Fluid Needs: 2610 ml fluid/day (weight method) Nutrition Diagnosis: - Altered nutrition- related labs related to HLD as evidenced by total CHOL 286H, Trig 215H, and LDL 200.7H. - improving total CHOL 188, Trig 123, HDL 37.9L, and LDL 125.5H (08/11/22); total CHOL 212H, Trig 164H, HDL 39L, LDL 140H (12/30/22)- Excessive energy intake related to daily dining out, undesirabl e food choices, and large portions as evidenced by diet recall above. - improving Educator Assessed Learning Barriers: none [id number] Ilsa Bassett, MS, RDN, LDN [address] [phone] 11/02/2023 13:23:58 11/02/2023 13:59:31 Body mass index 30+ - obesity [id number] Z68.31 Summary of Visit:Sheron hawthorne presents for MNT f/u for obesity and HLD. Weight is -7.2# since last visit. - pt reports that weight loss has been stress/anx iety related - I could've eaten more at times but didn't Diet Recall:B/ skips most days OR breakfast out 1x per week - 2 over easy eggs, ham, home fries, rye toast, iced coffee- usually, first intake is coffee with milk, first food may be pastry/radha jones with coffee at some point during the day or occasional ly sushi from [employer] (nothing regular)D/ main meal of the day - before 8-9pm - still salmon w/ rice/brocc maciel OR occasional burger OR smothered steak tips - all at the 99; or at home, pasta or pre-made sub or pre-made sushi or pre-made salad -again reviewed strategies to add balance to pasta meal with veggies and protein for satiety, nutrient density, and cholestero l reduction - discussed impact of inconsiste nt eating patterns during the day on PM eating behaviors, energy levels, etc -- identified strategies to improve eating structure - taking ACV gummies at night- recently upped vitamin D supplement - per pt, cholestero l was better, no labs available in our system to evaluate - addressed need to boost physical activity, discussed strategies Patient stage of change: action Weight Goal: 175#Estima davida Kcal Needs: 1771 kcal/day (MSJ for weight loss)Estim ated Protein needs: 94 g protein/da y (1.0 g/kg/day)E stimated Fluid Needs: 2610 ml fluid/day (weight method) Nutrition Diagnosis: - Altered nutrition- related labs related to HLD as evidenced by total CHOL 286H, Trig 215H, and LDL 200.7H. - improving total CHOL 188, Trig 123, HDL 37.9L, and LDL 125.5H (08/11/22); total CHOL 212H, Trig 164H, HDL 39L, LDL 140H (12/30/22)- Excessive energy intake related to daily dining out, undesirabl e food choices, and large portions as evidenced by diet recall above. - stable, no recent improvemen ts Educator Assessed Learning Barriers: none [id number] Danni Brunson RD [facility] [address] [place] [address] [address] [place] [address] 02/11/2024 13:02:22 02/11/2024 13:51:22 Body mass index 30+ - obesity [id number] Z68.31 Education topics Covered:- LDL lowering MNT- Plate Method- Benefit of eating 3 balanced meals per day on overall food choices and amount eaten- Importance of adequate physical activity Previous Diet Recall:B/ skips most days OR breakfast out 1x per week - 2 over easy eggs, ham, home fries, rye toast, iced coffee- usually, first intake is coffee with milk, first food may be pastry/radha jones with coffee at some point during the day or occasional ly sushi from [employer] (nothing regular)D/ main meal of the day - before 8-9pm - still salmon w/ rice/brocc maciel OR occasional burger OR smothered steak tips - all at the 99; or at home, pasta or pre-made sub or pre-made sushi or pre-made salad -again reviewed strategies to add balance to pasta meal with veggies and protein for satiety, nutrient density, and cholestero l reduction Patient stage of change: action Weight Goal:180#E stimated Kcal Needs: 1771 kcal/day (MSJ for weight loss)Estim ated Protein needs: 94 g protein/da y (1.0 g/kg/day)E stimated Fluid Needs: 2610 ml fluid/day (weight method) Nutrition Diagnosis: - Altered nutrition- related labs related to HLD as evidenced by total CHOL 286H, Trig 215H, and LDL 200.7H. - improving total CHOL 188, Trig 123, HDL 37.9L, and LDL 125.5H (08/11/22); total CHOL 212H, Trig 164H, HDL 39L, LDL 140H (12/30/22) - Excessive energy intake related to daily dining out, undesirabl e food choices, and large portions as evidenced by diet recall above. - stable, no recent improvemen ts Educator Assessed Barriers to Change:mot ivation. [id number] Danni Brunson RD [address] [address] 10/03/2024 14:22:31 10/03/2024 15:27:20 Body mass index 30+ - obesity [id number] Z68.31 Education topics Covered:- LDL lowering MNT- Plate Method- Benefit of eating 3 balanced meals per day on overall food choices and amount eaten- Importance of adequate physical activity Previous Diet Recall:B/ skips most days OR breakfast out 1x per week - 2 over easy eggs, ham, home fries, rye toast, iced coffee- usually, first intake is coffee with milk, first food may be pastry/radha jones with coffee at some point during the day or occasional ly sushi from [employer] (nothing regular)D/ main meal of the day - before 8-9pm - still salmon w/ rice/brocc maciel OR occasional burger OR smothered steak tips - all at the 99; or at home, pasta or pre-made sub or pre-made sushi or pre-made salad -again reviewed strategies to add balance to pasta meal with veggies and protein for satiety, nutrient density, and cholestero l reduction Patient stage of change: action Weight Goal:180#E stimated Kcal Needs: 1771 kcal/day (MSJ for weight loss)Estim ated Protein needs: 94 g protein/da y (1.0 g/kg/day)E stimated Fluid Needs: 2610 ml fluid/day (weight method) Nutrition Diagnosis: - Altered nutrition- related labs related to HLD as evidenced by total CHOL 286H, Trig 215H, and LDL 200.7H. - improving total CHOL 188, Trig 123, HDL 37.9L, and LDL 125.5H (08/11/22); total CHOL 212H, Trig 164H, HDL 39L, LDL 140H (12/30/22) - Excessive energy intake related to daily dining out, undesirabl e food choices, and large portions as evidenced by diet recall above. - stable, no recent improvemen ts Educator Assessed Barriers to Change:mot ivation. [id number] Danni Brunson RD [address] [place] [address] 03/20/2025 14:07:50 03/28/2025 11:35:37 Body mass index 30+ - obesity [id number] Z68.31 Education topics Covered:- LDL lowering MNT- Plate Method- Benefit of eating 3 balanced meals per day on overall food choices and amount eaten- Importance of adequate physical activity Previous Diet Recall:B/ skips most days OR breakfast out 1x per week - 2 over easy eggs, ham, home fries, rye toast, iced coffee- usually, first intake is coffee with milk, first food may be pastry/radha jones with coffee at some point during the day or occasional ly sushi from [employer] (nothing regular)D/ main meal of the day - before 8-9pm - still salmon w/ rice/brocc maciel OR occasional burger OR smothered steak tips - all at the 99; or at home, pasta or pre-made sub or pre-made sushi or pre-made salad -again reviewed strategies to add balance to pasta meal with veggies and protein for satiety, nutrient density, and cholestero l reduction Patient stage of change: action Weight Goal:180#E stimated Kcal Needs: 1771 kcal/day (MSJ for weight loss)Estim ated Protein needs: 94 g protein/da y (1.0 g/kg/day)E stimated Fluid Needs: 2610 ml fluid/day (weight method) Nutrition Diagnosis: - Altered nutrition- related labs related to HLD as evidenced by total CHOL 286H, Trig 215H, and LDL 200.7H. - improving total CHOL 188, Trig 123, HDL 37.9L, and LDL 125.5H (08/11/22); total CHOL 212H, Trig 164H, HDL 39L, LDL 140H (12/30/22) - Excessive energy intake related to daily dining out, undesirabl e food choices, and large portions as evidenced by diet recall above. - stable, no recent improvemen ts Educator Assessed Barriers to Change:mot ivation. Health Concerns Section Related Observation LastModified by Organization Detai ls LastModified Time None Recorded Concern Status LastModified by Organization Details LastModified Time None Recorded Advance Directives Directive None Recorded Payers Insurance Date Sequence Insurance Name Policy Number Policy Heller Covered Member ID Heller Member ID Guarantor Name 01/25/2024 1 [employer] (MEDICARE REPLACEMENT/A DVANTAGE - PPO) Alexander Mott [id number] Alexander Mott 01/25/2024 1 MEDICARE B-MD: [employer] Alexander Mott [id number] Alexander Mott 01/25/2024 1 [employer] (MEDICARE REPLACEMENT/A DVANTAGE - [place]PO) [id number] Alexander Mott [id number] Alexander Mott 07/12/2025 1 [facility] (MEDICARE REPLACEMENT/A DVANTAGE - HMO) [id number] Alexander Mott [id number] Alexander Mott 01/25/2024 1 [facility] [id number] Alexander Mott [id number] Alexander Mott 01/25/2024 2 MEDICARE B-MD: [facility] [employer] Alexander Mott [id number] Alexander Mott Notes Date Note Type Note Provider Name and Address Organization Details Recorded Time 02/11/2024 text/html Pt presents for F/U Outpatient Medical Nutrition Therapy for weight management and HLD. Pt rates their current nutrition knowledge to be:04/13 PMHX:BPHHTNVit D deficiency Primary:Dr. 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 How will we know if you have been successful?1: Improve / maintain Lipid Panel2: lose 20 lbs Updated Meals and Dining:Meals per day: 2Snacks per day: pickingSkips meals: 1 per day - eats at 11-1 PM and again at 6-7 PMRecent dietary changes: eating more consistently more than 1 meal per dayFood Allergy or intolerances: avoids tongue meatPrimary Sander Setter: rarely - pastaPrimary Food Tire Mechanic: self- 2 x/wkDining Out frequency:- fast food: none- take out: 99 take-out 1-2 x/wk- dining out: not latelyAlcohol Intake: occasionallySupplemen ts: Vit D3, SeroVital [facility] Hours of Sleep on Weekdays:8-10Hours of Sleep on Weekends:8-10 Physical Activity:Type of Physical Activity: some walking during workPhysical Limitations: none Per Patient:Skipping meals oftenNo exerciseConsume caffeinated drinks - 20 oz coffee per day w/ whole milkOvereating/ lack of control Motivations:1: Get off of statin medication2: more comfortable Weight History:Current Weight: 202 lbHighest Weight: 220 lb (2021)Desired Weight: 180 lbRecent Weight Changes: downward 20 lb trend since [address] [facility], [place], [address], [facility] 02/22/2024 11:59:03 10/03/2024 text/html Pt presents for F/U Outpatient Medical Nutrition Therapy for weight management and HLD. Pt rates their current nutrition knowledge to be:04/13 PMHX:BPHHTNVit D deficiency Primary:Dr. 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 How will we know if you have been successful?1: Improve / maintain Lipid Panel2: lose 20 lbs Updated Meals and Dining:Meals per day: 2Snacks per day: pickingSkips meals: 1 per day - eats at 11-1 PM and again at 6-7 PMRecent dietary changes: eating more consistently more than 1 meal per dayFood Allergy or intolerances: avoids tongue meatPrimary Sander Setter: rarely - pastaPrimary Food Tire Mechanic: self- 2 x/wkDining Out frequency:- fast food: none- take out: 99 take-out 1-2 x/wk- dining out: not latelyAlcohol Intake: occasionallySupplemen ts: Vit D3, SeroVital HGH Hours of Sleep on Weekdays:8-10Hours of Sleep on Weekends:8-10 Physical Activity:Type of Physical Activity: some walking during workPhysical Limitations: none Per Patient:Skipping meals oftenNo exerciseConsume caffeinated drinks - 20 oz coffee per day w/ whole milkOvereating/ lack of control Motivations:1: Get off of statin medication2: more comfortable Weight History:Sep 2024: 208.8 lbMay 2023: 202 lbHighest Weight: 220 lb (2021)Desired Weight: 180 lbRecent Weight Changes: downward 20 lb trend since [address] [facility], [place], [address], [facility] 11/07/2024 09:31:50 03/20/2025 text/html Pt presents for F/U Outpatient Medical Nutrition Therapy for weight management and HLD. Pt rates their current nutrition knowledge to be:04/13 PMHX:BPHHTNVit D deficiency Primary:Dr. 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 How will we know if you have been successful?1: Improve / maintain Lipid Panel2: lose 20 lbs Updated Meals and Dining:Meals per day: 2Snacks per day: pickingSkips meals: 1 per day - eats at 11-1 PM and again at 6-7 PMRecent dietary changes: eating more consistently more than 1 meal per dayFood Allergy or intolerances: avoids tongue meatPrimary Sander Setter: rarely - pastaPrimary Food Tire Mechanic: self- 2 x/wkDining Out frequency:- fast food: none- take out: 99 take-out 1-2 x/wk- dining out: not latelyAlcohol Intake: occasionallySupplemen ts: Vit D3, SeroVital HGH Hours of Sleep on Weekdays:8-10Hours of Sleep on Weekends:8-10 Physical Activity:Type of Physical Activity: some walking during workPhysical Limitations: none Per Patient:Skipping meals oftenNo exerciseConsume caffeinated drinks - 20 oz coffee per day w/ whole milkOvereating/ lack of control Motivations:1: Get off of statin medication2: more comfortable Weight History:Sep 2024: 208.8 lbMay 2023: 202 lbHighest Weight: 220 lb (2021)Desired Weight: 180 lbRecent Weight Changes: downward 20 lb trend since [address] [place], [id number], [facility] 03/20/2025 14:51:52
[2025-09-27 14:42] LABS: Appearance Urine Clear; Glucose Urine UA Negative (Negative); PH 8.0 (5.0-9.0); Specific Gravity - Urine 1.010 (1.005-1.025); UMIC TRIGGER UA YES
[2025-09-27 15:16] LABS: Hematocrit 46.4 % (42.0-52.0); Hemoglobin 15.0 g/dl (14.0-18.0); Mean Corpuscular HGB Conc 32.3 g/dl (31.0-36.0); Mean Corpuscular Hemoglobin 30.7 pg (27.0-33.0); Mean Corpuscular Volume 94.9 fL (80.0-98.0); NRBC Abs Auto 0.000 X10*3/uL (0.0-0.012); NRBC Pct Auto 0.0 /100WBC (0.0-0.2); Platelet Count 316 X10*3/uL (160-400); Red Blood Count 4.89 X10*6/uL (4.60-5.80); White Blood Count 10.8 X10*3/uL (4.8-10.8)
[2025-09-27 16:20] LABS: Alanine Aminotransferase 30 U/L (0-40); Albumin Level 4.5 g/dL (3.5-5.0); Alkaline Phosphatase 52 U/L (39-117); Anion Gap 12 (12-20); Aspartate Amino Transferase 27 U/L (5-37); Blood Urea Nitrogen 13 mg/dL (9-16); Calcium 9.9 mg/dL (8.4-10.2); Carbon Dioxide 29 mmol/L (22-29); Chloride 105 mmol/L (96-108); Cholesterol 242 mg/dL (<200); Estimated Glomerular Filt Rate > 60; HDL Cholesterol 38 mg/dL (>40); Potassium 4.1 mmol/L (3.3-5.1); Sodium 142 mmol/L (135-145); Total Protein 7.1 g/dL (6.5-8.0); Triglycerides 176 mg/dL (<150)
[2025-09-27 16:40] LABS: Thyroid Stimulating Hormone 1.94 uIU/mL (0.32-4.0)
== END 2025-09-27 11:24 | disposition home or self-care (01) ==
LOC: HO.HMGCLDS 11:23
PROVIDERS: PCP Internal Medicine; Visit Provider Internal Medicine
DX: E78.00 Pure hypercholesterolemia, unspecified (principal)
CPT/HCPCS: 36415; 80048; 80061; 80076; 81001; 84443; 85027